=== PATIENT | female | born 1990 | race Caucasian/White ===

== ENCOUNTER 2017-06-19 19:54 | Inpatient (IN) ==
[2017-06-19 20:24] LABS: Bilirubin,Urine Negative (Negative); Blood,Urine Small (Negative); Clarity,Urine Clear (Clear); Color,Urine Yellow (Yellow); Glucose,Urine (UA) Normal (Normal); Ketones,Urine Negative (Negative); Leukocyte Esterase,Urine Moderate (Negative); Nitrite,Urine Negative (Negative); Protein,Urine Negative (Neg-Trace); Specific Gravity,Urine 1.012 (1.010-1.025); Urobilinogen,Urine Normal (Normal)
[2017-06-19 20:28] LABS: Bacteria,Urine None Seen per hpf (None-Few); Hyaline Casts,Urine None Seen per lpf (None-Few); Squamous Epithelial Cell,Urine Few per lpf (None-Few)
[2017-06-19 20:40] LABS: Basophils % 0.5 %; Eosinophils # 0.3 K/mcL (0.0-0.6); Eosinophils % 3.6 %; Hematocrit 41.6 % (35.3-44.9); Immature Granulocytes % 0.2 % (0-4); Lymphocytes # 1.8 K/mcL (0.6-4.6); Mean Corpuscular HGB Conc 31.3 g/dL (31.6-35.5); Mean Corpuscular Hemoglobin 24.8 pg (28.0-33.3); Mean Corpuscular Volume 79.4 fL (83.0-100.0); Mean Platelet Volume 10.1 fL (9.4-12.4); Monocytes # 0.6 K/mcL (0.0-1.3); Monocytes % 7.1 %; Neutrophils # 5.7 K/mcL (1.6-8.9); Platelet Count 298 K/mcL (140-400); Red Blood Count 5.24 M/mcL (3.82-4.97); Red Cell Distribution Width 13.9 % (11.5-14.5); Segmented Neutrophils % 67.6 %
[2017-06-19 20:58] LABS: Bilirubin,Direct 0.1 mg/dL (0.0-0.2); Bilirubin,Indirect 0.2 mg/dL (0.0-1.2); Bilirubin,Total 0.3 mg/dL (0.3-1.0); Calcium 9.6 mg/dL (8.6-10.3); Potassium 3.4 mEq/L (3.5-5.1)
[2017-06-19] MEDS ORDERED: *HR* Nalbuphine 10 MG/ML AMPUL IM ONE (22:12)
--- NOTE | 2017-06-19 22:40 | Emergency Department Note ---
Disposition Clinical Impression: Hydronephrosis, right, Right ureteral stone Disposition: Admitted As Inpatient Condition: Good Referrals: Eboni Bland, DIRECTOR SPEECH [Primary Care Provider] - Time of Disposition: 22:40 Abdominal Pain HPI - General Chief Complaint: ED Abdominal Pain Stated Complaint: Kidney stone Time Seen by Provider: 06/19/17 21:51 Source: patient Mode of arrival: ambulatory Limitations: no limitations Nursing Notes Reviewed: Yes Vital Signs Reviewed: Yes - History of Present Illness HPI Narrative: 27-year-old female presents emergency of her right-sided abdominal pain. She states it is in the right lower quadrant region and radiates to her back. Worse with movement. Better at rest. History of same in the past when she said kidney stones. She denies any dysuria and states that she has noted some blood in her urine. No vaginal complaints. Positive for nausea. No vomiting today. No documented fevers or riders. No other complaints at this time. She does follow with urology in the past for her previous kidney stones. Pain Scale: 10 - Related Data Home Medications Medication Instructions Recorded Confirmed Omeprazole [PriLOSEC] 40 mg PO DAILY 10/13/14 12/17/15 Cetirizine HCl [Zyrtec] 10 mg PO DAILY 12/07/15 12/17/15 Ferrous Sulfate 650 mg PO DAILY 12/07/15 12/17/15 Medroxyprogesterone Acetate 150 mg IM Q3M 12/07/15 12/17/15 [Depo-Provera] Potassium Citrate [Urocit-K] 10 meq PO TID 12/07/15 12/17/15 Sodium Bicarbonate 1,300 mg PO BID 12/07/15 12/17/15 Previous Rx's Medication Instructions Recorded OxyCODONE/APAP 5/325 [Percocet 1 each PO Q4H PRN #15 tablet 12/17/15 5/325 MG] Dicyclomine [Bentyl] 10 mg PO QID #10 capsule 10/10/16 Ondansetron HCl [Zofran] 4 mg PO DAILY PRN #20 tablet 10/10/16 Phenazopyridine [Pyridium] 100 mg PO TID PRN #9 tablet 12/24/16 cephALEXin [Keflex] 500 mg PO BID #20 capsule 12/24/16 Allergies Allergy/AdvReac Type Severity Reaction Status Date / Time diazepam [From Valium] Allergy Chest Pain Verified 12/24/16 13:23 Review of Systems: Gen.: No fevers or chills or new weakness Eyes: Denies double vision or any vision changes Ears: Denies any otalgia Pharynx: Denies sore throat CV: Denies chest pain. Denies palpitations Respiratory: Denies any cough or sputum production. No shortness of breath. GI: Positive abdominal pain. Neuro: Denies any headache. No problems with ambulation. No numbness. Skin: Denies any rashes or abrasions Psych: Denies any depression or suicidal or homicidal ideation Musculoskeletal: Denies any arthralgias or myalgias Abdominal Pain PMH - Past Medical History Medical history: Reports: asthma, GERD, kidney stones, migraine, other Female Surgical History: Reports: , ureteral stent HAMMER FITTER history: Reports: spontaneous Psychiatric history: Reports: anxiety, depression - Social History Smoking status: Never smoker Alcohol use: Reports: none Drug use: Reports: none Physical Exam - General Limitations: no limitations General appearance: alert, in no apparent distress - Head Head exam: atraumatic, normocephalic - Eye Eye exam: Present: normal appearance - ENT ENT exam: normal exam - Neck Neck exam: Present: normal inspection - Chest Chest inspection: Present: normal inspection - Respiratory Respiratory exam: Present: normal lung sounds bilaterally - Cardiovascular Cardiovascular exam: Present: regular rate, normal rhythm - Abdominal Exam Abdominal exam: Present: soft, tenderness (Right lower quadrant tenderness. Normal bowel sounds.) - Extremities Exam Extremities exam: Present: normal inspection - Expanded Lower Extremity Exam Hip/Pelvis exam: Present: normal inspection - Back Exam Back exam: Present: normal inspection - Neurological Exam Neurological exam: Present: alert, oriented X3 - Psychiatric Psychiatric exam: Present: normal affect, normal mood - Skin Skin exam: Present: warm, dry, intact Course Vital Signs Temperature 98.3 F 06/19/17 19:56 Pulse Rate 100 06/19/17 19:56 Respiratory Rate 20 06/19/17 19:56 Blood Pressure 147/81 06/19/17 19:56 O2 Sat by Pulse Oximetry 100 06/19/17 19:56 Temperature 98.3 F 06/19/17 19:56 Pulse Rate 100 06/19/17 19:56 Respiratory Rate 20 06/19/17 19:56 Blood Pressure 147/81 06/19/17 19:56 O2 Sat by Pulse Oximetry 100 06/19/17 19:56 Oxygen Delivery Oxygen Delivery Room Air Abdominal Pain - MDM Narrative Medical decision making narrative: CT shows evidence of 2 large stones. One is 9 mm in the right UVJ. She also has a distal right ureter stone of 3 mm. Her creatinines bumped to 1.33. No white count. Nitrite negative urine. Afebrile. Patient will need to be admitted to the hospitalist and consult to the urologist. I did speak with Dr. Cheney with urology. We will see in consultation. I will start her on IV antibiotics as well. She will be given Rocephin. - Medical Records Medical records reviewed: Yes I reviewed the patient's medical records. - Lab Data Lab results reviewed: Yes I reviewed the patient's lab results. Result diagrams: 06/19/17 20:28 06/19/17 20:28 Lab Results 06/19/17 06/19/17 06/19/17 Range/Units 20:11 20:11 20:28 WBC 8.4 (4.3-11.1) K/mcL RBC 5.24 H (3.82-4.97) M/mcL Hgb 13.0 (11.5-15.4) g/dL Hct 41.6 (35.3-44.9) % MCV 79.4 L (83.0-100.0) fL MCH 24.8 L (28.0-33.3) pg MCHC 31.3 L (31.6-35.5) g/dL RDW 13.9 (11.5-14.5) % Plt Count 298 (140-400) K/mcL MPV 10.1 (9.4-12.4) fL Immature Gran % 0.2 (0-4) % Seg Neutrophils % 67.6 % Lymphocytes % 21.0 % Monocytes % 7.1 % Eosinophils % 3.6 % Basophils % 0.5 % Neutrophils # 5.7 (1.6-8.9) K/mcL Lymphocytes # 1.8 (0.6-4.6) K/mcL Monocytes # 0.6 (0.0-1.3) K/mcL Eosinophils # 0.3 (0.0-0.6) K/mcL Basophils # 0.0 (0.0-0.2) K/mcL Sodium (136-145) mEq/L Potassium (3.5-5.1) mEq/L Chloride (98-107) mEq/L Carbon Dioxide (23-29) mEq/L BUN (6-20) mg/dL Creatinine (0.60-1.20) mg/dL Est GFR ( Amer) (> 60) Est GFR (Non-Af Amer) (> 60) BUN/Creatinine Ratio (6-26) Glucose (70-105) mg/dL Calculated Osmolality (280-300) Calcium (8.6-10.3) mg/dL Total Bilirubin (0.3-1.0) mg/dL Direct Bilirubin (0.0-0.2) mg/dL Indirect Bilirubin (0.0-1.2) mg/dL AST (13-39) Units/L ALT (7-52) Units/L Alkaline Phosphatase (34-104) Units/L Serum Total Protein (6.4-8.9) g/dL Albumin (3.5-5.7) g/dL Globulin (2.4-3.5) g/dL Albumin/Globulin Ratio (1.1-2.2) Amylase (29-103) Units/L Lipase (11-82) Units/L Urine Color Yellow (Yellow) Urine Clarity Clear (Clear) Urine pH 7.0 (5.0-8.0) pH Units Ur Specific [place] 1.012 (1.010-1.025) Urine Protein Negative (Neg-Trace) mg/dL Urine Glucose (UA) Normal (Normal) mg/dL Urine Ketones Negative (Negative) mg/dL Urine Blood Small H (Negative) Urine Nitrite Negative (Negative) Urine Bilirubin Negative (Negative) Urine Urobilinogen Normal (Normal) mg/dL Ur Leukocyte Esterase Moderate H (Negative) Urine Microscopic RBC 5-15 H (0-3) per hpf Urine Microscopic WBC 5-15 H (0-3) per hpf Ur Squamous Epith Cells Few (None-Few) per lpf Urine Bacteria None Seen (None-Few) per hpf Hyaline Casts None Seen (None-Few) per lpf Ur Culture Indicated? YES A (NO) Urine Test Negative (Negative) 06/19/17 Range/Units 20:28 WBC (4.3-11.1) K/mcL RBC (3.82-4.97) M/mcL Hgb (11.5-15.4) g/dL Hct (35.3-44.9) % MCV (83.0-100.0) fL MCH (28.0-33.3) pg MCHC (31.6-35.5) g/dL RDW (11.5-14.5) % Plt Count (140-400) K/mcL MPV (9.4-12.4) fL Immature Gran % (0-4) % Seg Neutrophils % % Lymphocytes % % Monocytes % % Eosinophils % % Basophils % % Neutrophils # (1.6-8.9) K/mcL Lymphocytes # (0.6-4.6) K/mcL Monocytes # (0.0-1.3) K/mcL Eosinophils # (0.0-0.6) K/mcL Basophils # (0.0-0.2) K/mcL Sodium 138 (136-145) mEq/L Potassium 3.4 L (3.5-5.1) mEq/L Chloride 112 H (98-107) mEq/L Carbon Dioxide 20 L (23-29) mEq/L BUN 16 (6-20) mg/dL Creatinine 1.33 H (0.60-1.20) mg/dL Est GFR ( Amer) 58 L (> 60) Est GFR (Non-Af Amer) 48 L (> 60) BUN/Creatinine Ratio 12 (6-26) Glucose 97 (70-105) mg/dL Calculated Osmolality 287 (280-300) Calcium 9.6 (8.6-10.3) mg/dL Total Bilirubin 0.3 (0.3-1.0) mg/dL Direct Bilirubin 0.1 (0.0-0.2) mg/dL Indirect Bilirubin 0.2 (0.0-1.2) mg/dL AST 11 L (13-39) Units/L ALT 10 (7-52) Units/L Alkaline Phosphatase 70 (34-104) Units/L Serum Total Protein 8.0 (6.4-8.9) g/dL Albumin 4.0 (3.5-5.7) g/dL Globulin 4.0 H (2.4-3.5) g/dL Albumin/Globulin Ratio 1.0 L (1.1-2.2) Amylase 29 (29-103) Units/L Lipase 33 (11-82) Units/L Urine Color (Yellow) Urine Clarity (Clear) Urine pH (5.0-8.0) pH Units Ur Specific [place] (1.010-1.025) Urine Protein (Neg-Trace) mg/dL Urine Glucose (UA) (Normal) mg/dL Urine Ketones (Negative) mg/dL Urine Blood (Negative) Urine Nitrite (Negative) Urine Bilirubin (Negative) Urine Urobilinogen (Normal) mg/dL Ur Leukocyte Esterase (Negative) Urine Microscopic RBC (0-3) per hpf Urine Microscopic WBC (0-3) per hpf Ur Squamous Epith Cells (None-Few) per lpf Urine Bacteria (None-Few) per hpf Hyaline Casts (None-Few) per lpf Ur Culture Indicated? (NO) Urine Test (Negative) - Radiology Data Radiology results reviewed: Yes I reviewed the patient's radiology results.
[2017-06-19] MEDS ORDERED: cefTRIAXone 1,000 MG in Water for inj. (sterile) 20 ML 10 ML IVP ONE (22:41)
[2017-06-19] MEDS ORDERED: Ketorolac 30 MG/ML VIAL IVP ONE (22:42)
[2017-06-19] MEDS ORDERED: *HR* Promethazine 25 MG/ML VIAL IVP PRN (23:50)
[2017-06-19] MEDS ORDERED: Naloxone 0.4 MG/ML INJ IVP PRN ×2 (23:50)
[2017-06-19] MEDS ORDERED: Acetaminophen 325 MG TABLET PO PRN (23:50)
[2017-06-19] MEDS ORDERED: OXYCODONE Oral CONC 10 MG/0.5 ML ORAL.SYG SL PRN ×2 (23:50)
[2017-06-20] MEDS: 0.9 % Sodium Chloride 1,000 ML IVC SCH ×3 (00:12→20:09)
--- NOTE | 2017-06-20 00:20 | Internal Med History&Physical ---
Date of Encounter: 06/19/17 Time of Encounter: 23:00 Internal Medicine - H&P: HPI Chief complaint: Right flank pain Admitted From: Home Plans for Post Hospital Care: Home History of present illness: Ms. Mcbride is a 27 year old female present to ER for right flank pain for 1 day. Past medical history is significant for renal tubular acidosis, recurrent kidney stone S/P multiple stenting, GERD. Patient said since last Monday she started to have right groin pain. Patient started to have right flank pain, radiates to right groin since today. Patient denies fever. Patient has nausea and vomited 3 times, vomiting are stomach content, no blood in it. Patient denies dysuria or burning on urination but complained of urination urgency and increased frequency. In the emergency room , urinalysis shows UTI, abdominal CAT scan shows right ureter stone with partial obstructive hydronephrosis. Urology was called by ER. Patient was given antibiotics and admitted for further management. Past Med Surg Social Fam HX - Past Medical History Medical history: asthma, GERD, kidney stones, migraine, other Psychiatric history: anxiety, depression - Past Surgical History Surgical History: , ureteral stent - Social History Smoking Status: Never smoker Smokeless Tobacco Status: No Alcohol use: none Drug use: none - Family History Mother History Unknown: Yes Internal Medicine - H&P: Meds Cyclobenzaprine [Flexeril] 10 mg PO HS 06/19/17 [History] Iron,Carbonyl [Iron Chews] 15 mg PO BID 06/19/17 [History] Omeprazole [PriLOSEC] 40 mg PO DAILY 06/19/17 [History] Potassium Citrate [Urocit-K] 5 meq PO TID 06/19/17 [History] Sodium Bicarbonate 100 mg PO QID 06/19/17 [History] 3 Allergy/AdvReac Type Severity Reaction Status Date / Time diazepam [From Valium] Allergy Chest Pain Verified 12/24/16 13:23 All Systems PM: A 10-system review of systems was performed and is negative for pertinent findings except as documented above in the HPI. - Constitutional Vitals: Temp Pulse Resp BP Pulse Ox 98.3 F 100 16 140/72 100 06/19/17 19:56 06/19/17 19:56 06/19/17 23:50 06/19/17 23:50 06/19/17 19:56 General appearance: Present: A&O X 3, no acute distress, answers questions appropriately - Head Head exam: Present: atraumatic, normocephalic - Eye Eye exam: Present: PERRL, conjuntiva pink, sclera anicteric Pupils: Present: PERRL - Neck Neck exam general surgery: Present: supple, trachea midline. Absent: lymphadenopathy - Respiratory Respiratory exam: Present: CTAB. Absent: accessory muscle use, rales, rhonchi, wheezes - Cardiovascular Cardiovascular exam: Present: RRR, +S1, +S2. Absent: diastolic murmur, gallop, rubs, systolic murmur - GI/Abdominal GI/Abdominal exam: Present: normal bowel sounds, soft, tenderness (RLQ tenderness without rebound or guarding. CVAT negative bilaterally), no peritoneal signs. Absent: distended - Extremities Exam Extremities exam: Present: warm, radial pulses palpable and symmetrical. Absent : calf tenderness, cyanotic, pedal edema - Neurological Exam Neurological exam: Present: CN II-XII intact, oriented X3, no focal deficits. Absent: pronater drift, facial droop, speech deficit - Skin Skin exam: Present: dry, intact Internal Med - H&P Results - Labs CBC & Chem 7: 06/19/17 20:28 06/19/17 20:28 - Assessment and plan (1) UTI (urinary tract infection) Current Visit: Yes Status: Acute Assessment and plan: Patient has UTI based on urinalysis and the symptoms. CT abdomen shows right- sided ureteral stone. Place patient on antibiotic and IV fluid. Urology was called. Keep patient nothing by mouth for possible urologic procedure. - Continue Rocephin IV - Follow up urine culture results Qualifiers: Urinary tract infection type: acute pyelonephritis Qualified Code(s): N10 - Acute pyelonephritis (2) DVT prophylaxis Current Visit: Yes Status: Acute Assessment and plan: Patient is young and ambulating well. Low risk for DVT. No anticoagulation placed at this point (3) Hydronephrosis, right Current Visit: Yes Status: Acute Assessment and plan: Due to ureteral stone. Urology consult for further management. (4) Right ureteral stone Current Visit: Yes Status: Acute Assessment and plan: Management as above. - Time Spent With Patient Total time spent is greater than 50% in coordination of care (as documented) at patient's floor/unit and/or counseling patient: 40 minutes Greater than 35 minutes
[2017-06-20] MEDS: Ondansetron 4 MG/2 ML VIAL IVP PRN ×2 (00:55→08:39)
[2017-06-20 04:23] LABS: Basophils % 0.4 %; Eosinophils # 0.3 K/mcL (0.0-0.6); Eosinophils % 3.3 %; Hematocrit 40.7 % (35.3-44.9); Hemoglobin 12.7 g/dL (11.5-15.4); Immature Granulocytes % 0.3 % (0-4); Lymphocytes # 2.5 K/mcL (0.6-4.6); Lymphocytes % 27.2 %; Mean Corpuscular HGB Conc 31.2 g/dL (31.6-35.5); Mean Corpuscular Hemoglobin 24.8 pg (28.0-33.3); Mean Corpuscular Volume 79.5 fL (83.0-100.0); Mean Platelet Volume 11.3 fL (9.4-12.4); Monocytes % 10.6 %; Neutrophils # 5.4 K/mcL (1.6-8.9); Nucleated Red Blood Cells 0.2 /100 WBC (0); Platelet Count 221 K/mcL (140-400); Red Blood Count 5.12 M/mcL (3.82-4.97); Red Cell Distribution Width 14.1 % (11.5-14.5); Segmented Neutrophils % 58.2 %
[2017-06-20 04:29] LABS: BUN/Creatinine Ratio 16 (6-26); Blood Urea Nitrogen 17 mg/dL (6-20); Calcium 9.3 mg/dL (8.6-10.3); Carbon Dioxide 15 mEq/L (23-29); Chloride 119 mEq/L (98-107); Glucose 96 mg/dL (70-105); Magnesium 2.3 mg/dL (1.6-2.6); Osmolality,Calculated 289 (280-300); Sodium 139 mEq/L (136-145); eGFR For African Americans > 60 (> 60); eGFR For Non-African Americans > 60 (> 60)
--- NOTE | 2017-06-20 07:41 | Urology - Consult Note ---
Date of Encounter: 06/20/17 Time of Encounter: 07:39 - Assessment and Plan (1) Right ureteral stone Current Visit: Yes Status: Acute Assessment and plan: 27-year-old woman with a distal right ureteral stone. I reviewed the CT scan. I discussed the findings with her. I reviewed her labs. Her urinalysis was not concerning for a UTI. A culture is pending. I think it would be reasonable to extract or stones today. I recommend proceeding with a right ureteroscopy, laser lithotripsy, and stent placement. She was informed of the risks of the procedure including but not limited to bleeding, infection, injury to other structures, need for further procedures, stent irritation, incomplete fragmentation, ureteral perforation, need for nephrostomy tube, need for open repair, risks unforeseen, and the risk of anesthesia. She is willing to proceed. Urology CN:DEBRA Consult date: 06/20/17 Reason for consult Urology: Other (Right flank pain) Requesting physician: Jamie Donaldson Jr History of present illness: 27-year-old woman presents with a 1-2 day history of right flank pain. The pain radiates to her groin. It was severe. She describes it as being sharp. She has noted nausea and threw up from the pain. She came to the emergency department. A CT scan showed a distal right ureteral stone with evidence of right-sided hydronephrosis. She was admitted for further care. She has a long-standing history of kidney stones. She follows with Dr. Mtz. He previously performed a ureteroscopic stone extraction. She has a history of nephrocalcinosis. Today, she is feeling better. She says her flank pain has improved. She denies passing the stone at this time. Past Med Surg Social Fam HX - Past Medical History Medical history: asthma, GERD, kidney stones, migraine, other Psychiatric history: anxiety, depression - Past Surgical History Surgical History: , ureteral stent - Social History Smoking Status: Never smoker Smokeless Tobacco Status: No Alcohol use: none Drug use: none - Family History Mother History Unknown: Yes Medications and Allergies Cyclobenzaprine [Flexeril] 10 mg PO HS 06/19/17 [History] Omeprazole [PriLOSEC] 40 mg PO DAILY 06/19/17 [History] Ferrous Sulfate [Ferrous Sulfate] 325 mg PO BID 06/20/17 [History] Oxybutynin [Ditropan] 5 mg PO BID 06/20/17 [History] Potassium Citrate [Urocit-K] 1,080 mg PO TID 06/20/17 [History] SUMAtriptan succinate [Imitrex] 50 mg PO Q2H PRN 06/20/17 [History] Sodium Bicarbonate 1,300 mg PO BID 06/20/17 [History] 3 Allergy/AdvReac Type Severity Reaction Status Date / Time diazepam [From Valium] AdvReac Chest Pain Verified 06/20/17 07:09 Review of Systems - Constitutional no chills, no fever(s) - EENT Nose, mouth and throat: no dizziness - Cardiovascular no chest pain - Respiratory no dyspnea - Gastrointestinal nausea, vomiting - Genitourinary Genitourinary: flank pain, no hematuria - Musculoskeletal no back pain - Integumentary no erythema, no rash - Neurological no weakness - Psychiatric no suicidal ideation - Hematologic/Lymphatic no easy bleeding - Allergic/Immunologic no wheezing Exam Initial Vital Signs Temp Pulse Resp BP Pulse Ox 98.3 F 100 20 147/81 100 06/19/17 19:56 06/19/17 19:56 06/19/17 19:56 06/19/17 19:56 06/19/17 19:56 - General physical appearance Present: well developed, well nourished, no distress - Eyes Absent: icteric - ENT Present: normal mucosa - Neck Present: trachea midline - Respiratory Present: normal respiratory effort - Cardiovascular Cardiovascular exam IM: RRR - Abdomen Abdomen: Present: soft - Integumentary Present: no rash - Neurologic Present: normal coordination - Musculoskeletal Present: other (Normal tone.) Urology Results - Labs 06/20/17 04:03 06/20/17 04:03 Abnormal lab results RBC 5.12 M/mcL (3.82-4.97) H 06/20/17 04:03 MCV 79.5 fL (83.0-100.0) L 06/20/17 04:03 MCH 24.8 pg (28.0-33.3) L 06/20/17 04:03 MCHC 31.2 g/dL (31.6-35.5) L 06/20/17 04:03 Nucleated RBCs/100 WBC 0.2 /100 WBC (0) H 06/20/17 04:03 Chloride 119 mEq/L (98-107) H 06/20/17 04:03 Carbon Dioxide 15 mEq/L (23-29) L 06/20/17 04:03 AST 11 Units/L (13-39) L 06/19/17 20:28 Globulin 4.0 g/dL (2.4-3.5) H 06/19/17 20:28 Albumin/Globulin Ratio 1.0 (1.1-2.2) L 06/19/17 20:28 Urine Blood Small (Negative) H 06/19/17 20:11 Ur Leukocyte Esterase Moderate (Negative) H 06/19/17 20:11 Urine Microscopic RBC 5-15 per hpf (0-3) H 06/19/17 20:11 Urine Microscopic WBC 5-15 per hpf (0-3) H 06/19/17 20:11 Ur Culture Indicated? YES (NO) A 06/19/17 20:11 Diabetes panel 06/20/17 Range/Units 04:03 Sodium 139 (136-145) mEq/L Potassium 4.0 (3.5-5.1) mEq/L Chloride 119 H (98-107) mEq/L Carbon Dioxide 15 L (23-29) mEq/L BUN 17 (6-20) mg/dL Creatinine 1.09 (0.60-1.20) mg/dL Glucose 96 (70-105) mg/dL Calcium 9.3 (8.6-10.3) mg/dL Calcium panel 06/20/17 Range/Units 04:03 Calcium 9.3 (8.6-10.3) mg/dL Pituitary panel 06/20/17 Range/Units 04:03 Sodium 139 (136-145) mEq/L Potassium 4.0 (3.5-5.1) mEq/L Chloride 119 H (98-107) mEq/L Carbon Dioxide 15 L (23-29) mEq/L BUN 17 (6-20) mg/dL Creatinine 1.09 (0.60-1.20) mg/dL Glucose 96 (70-105) mg/dL Calcium 9.3 (8.6-10.3) mg/dL Adrenal panel 06/20/17 Range/Units 04:03 Sodium 139 (136-145) mEq/L Potassium 4.0 (3.5-5.1) mEq/L Chloride 119 H (98-107) mEq/L Carbon Dioxide 15 L (23-29) mEq/L BUN 17 (6-20) mg/dL Creatinine 1.09 (0.60-1.20) mg/dL Glucose 96 (70-105) mg/dL Calcium 9.3 (8.6-10.3) mg/dL All other labs normal. - Imaging CT scan - abdomen: report reviewed, image reviewed CT scan - pelvis: report reviewed, image reviewed Consult Discharge Plan - Plan Referrals: Eboni Bland, WATER[employer] MATERIAL FOLDER [Primary Care Provider] -
--- NOTE | 2017-06-20 08:07 | Internal Med Progress Note ---
<Milena Willett - Last Filed: 06/20/17 08:03> Date of Encounter: 06/20/17 Time of Encounter: 08:00 - Assessment and plan (1) Right ureteral stone Current Visit: Yes Status: Acute Assessment and plan: Abdominal CT demonstrated moderate right hydronephrosis secondary to stone in UVJ. Urology is planning to take patient to OR today for ureteroscopy, laser lithotripsy, and stent placement. She reports history of kidney stones, November 2015 was last procedure to remove stones bilaterally from kidneys. She follows with Dr. Mtz and urology office and with Dr. Hussein of nephrology. She has a family history of kidney stones her aunt also has many kidney stones. Afebrile WBC 9.3 Cr 1.09 She reports that pain is well-controlled. -NPO -oxycodone as needed for pain -IVF (2) Hydronephrosis, right Current Visit: Yes Status: Acute Assessment and plan: see management above (3) UTI (urinary tract infection) Current Visit: Yes Status: Acute Assessment and plan: Urinalysis (leukocyte esterase +) and symptoms concerning for UTI. Likely secondary to UVJ stone. History of frequent UTIs. - Continue Rocephin day 2 - urine culture pending Qualifiers: Urinary tract infection type: acute pyelonephritis Qualified Code(s): N10 - Acute pyelonephritis (4) DVT prophylaxis Current Visit: Yes Status: Acute Assessment and plan: Patient is young and ambulating well. Low risk for DVT. No anticoagulation placed at this point. - Time Spent With Patient Total time spent is greater than 50% in coordination of care (as documented) at patient's floor/unit and/or counseling patient: - Subjective Interval history: 27-year-old female past medical history of recurrent kidney stones, GERD, asthma presented to [facility] complaining of right flank pain with associated nausea and vomiting. She has increased urinary frequency with decrease in stream. Imaging demonstrated right hydronephrosis with stone in UVJ. She reports improvement in pain since taking pain medications. She denies nausea, vomiting. - Constitutional Vitals: Temp Pulse Resp BP Pulse Ox 98.0 F 88 14 96/53 98 06/20/17 05:48 06/20/17 05:48 06/20/17 05:48 06/20/17 05:48 06/20/17 05:48 General appearance: Present: A&O X 3, no acute distress, answers questions appropriately Exam: Gen.: Vitals noted. No acute distress. AAOx3 HEENT: oropharynx clear, Normocephalic, atraumatic Neck: Supple. No adenopathy. Cardiac: RRR, no murmur, +S1/S2 Pulmonary: CTA bilaterally, no wheezes, rales or rhonchi, equal chest expansion Abdomen: soft, minimal right lower quadrant tender, Bowel sounds noted, no guarding, no bilateral flank pain Extremities: no BLE edema, nontender calf, no cyanosis or clubbing Neuro: A&Ox3, moves all extremities, no focal deficits Psych: Appropriate mood and behavior Internal Medicine: Result - Labs CBC & Chem 7: 06/20/17 04:03 06/20/17 04:03 Labs: Short CBC 06/20/17 Range/Units 04:03 WBC 9.3 (4.3-11.1) K/mcL Hgb 12.7 (11.5-15.4) g/dL Hct 40.7 (35.3-44.9) % Plt Count 221 (140-400) K/mcL Neutrophils # 5.4 (1.6-8.9) K/mcL BMP 06/20/17 04:03 Sodium 139 Potassium 4.0 Chloride 119 H Carbon Dioxide 15 L BUN 17 Creatinine 1.09 Glucose 96 Calcium 9.3 Consult Discharge Plan - Plan Referrals: Eboni Bland, SUPPLY CRIB ATTENDANT [Primary Care Provider] - <Augie Sanchez - Last Filed: 06/20/17 17:08> Date of Encounter: 06/20/17 - Assessment and plan (1) Hydronephrosis, right Current Visit: Yes Status: Acute (2) Right ureteral stone Current Visit: Yes Status: Acute (3) UTI (urinary tract infection) Current Visit: Yes Status: Acute Qualifiers: Urinary tract infection type: acute pyelonephritis Qualified Code(s): N10 - Acute pyelonephritis (4) DVT prophylaxis Current Visit: Yes Status: Acute - Time Spent With Patient Total time spent is greater than 50% in coordination of care (as documented) at patient's floor/unit and/or counseling patient: - Constitutional Vitals: Temp Pulse Resp BP Pulse Ox 98.3 F 87 14 116/77 99 06/20/17 15:25 06/20/17 15:25 06/20/17 15:25 06/20/17 15:25 06/20/17 15:25 Internal Medicine: Result - Labs CBC & Chem 7: 06/20/17 04:03 06/20/17 04:03 Labs: Short CBC 06/20/17 Range/Units 04:03 WBC 9.3 (4.3-11.1) K/mcL Hgb 12.7 (11.5-15.4) g/dL Hct 40.7 (35.3-44.9) % Plt Count 221 (140-400) K/mcL Neutrophils # 5.4 (1.6-8.9) K/mcL BMP 06/20/17 04:03 Sodium 139 Potassium 4.0 Chloride 119 H Carbon Dioxide 15 L BUN 17 Creatinine 1.09 Glucose 96 Calcium 9.3 - Attending Attestation I performed a history and physical examination of the patient and discussed his/ her management with the resident. I reviewed the residents note and agree with the documented findings and plan of care.
[2017-06-20] MEDS ORDERED: D5% in Water 1,000 ML IVC PRN (12:29)
[2017-06-20] MEDS ORDERED: *HR* Dextrose 50 % in Water (Syg) 50 ML SYRINGE IVP PRN (12:29)
[2017-06-20] MEDS ORDERED: Dextrose Gel 15 GM/37.5 ML TUBE PO PRN ×2 (12:29)
[2017-06-20] MEDS ORDERED: cefTRIAXone 1,000 MG in Water for inj. (sterile) 20 ML 10 ML IVPB SCH (23:00)
[2017-06-21 05:31] LABS: Hematocrit 37.1 % (35.3-44.9); Hemoglobin 11.6 g/dL (11.5-15.4); Mean Corpuscular HGB Conc 31.3 g/dL (31.6-35.5); Mean Corpuscular Hemoglobin 24.9 pg (28.0-33.3); Mean Corpuscular Volume 79.6 fL (83.0-100.0); Mean Platelet Volume 10.5 fL (9.4-12.4); Platelet Count 266 K/mcL (140-400); Red Blood Count 4.66 M/mcL (3.82-4.97); Red Cell Distribution Width 14.5 % (11.5-14.5)
[2017-06-21 05:50] LABS: BUN/Creatinine Ratio 16 (6-26); Blood Urea Nitrogen 15 mg/dL (6-20); Calcium 8.8 mg/dL (8.6-10.3); Carbon Dioxide 16 mEq/L (23-29); Chloride 119 mEq/L (98-107); Glucose 100 mg/dL (70-105); Osmolality,Calculated 293 (280-300); Potassium 3.2 mEq/L (3.5-5.1); Sodium 141 mEq/L (136-145); eGFR For African Americans > 60 (> 60); eGFR For Non-African Americans > 60 (> 60)
[2017-06-21] MEDS: 0.9 % Sodium Chloride 1,000 ML IVC SCH (06:27)
[2017-06-21] MEDS ORDERED: Potassium Chloride 40 MEQ, Lidocaine 1% 2 ML in D5% in Water 500 ML IVPB ONE (07:04)
--- NOTE | 2017-06-21 07:06 | Urology Progress Note ---
Date of Encounter: 06/21/17 Time of Encounter: 07:05 - Assessment and Plan (1) Right ureteral stone Current Visit: Yes Status: Acute Assessment and plan: 27-year-old woman with a distal right ureteral stone. Plan for right ureteroscopy, laser lithotripsy, and stent placement today. She is aware of all risks. I will repeat her potassium chloride today with IV KCl. Progress Note Narrative: 27-year-old woman with a distal right ureteral stone is seen in follow-up. Operative room schedule was significantly delayed yesterday and her case was postponed to today. She is doing well overnight. Plan for right ureteroscopic stone extraction today. Objective Initial Vital Signs Temp Pulse Resp BP Pulse Ox 98.3 F 100 20 147/81 100 06/19/17 19:56 06/19/17 19:56 06/19/17 19:56 06/19/17 19:56 06/19/17 19:56 - General physical appearance Present: well developed, well nourished, no distress - Respiratory Present: normal respiratory effort - Abdomen Present: soft - Labs 06/21/17 04:55 06/21/17 04:55 Diabetes panel 06/21/17 Range/Units 04:55 Sodium 141 (136-145) mEq/L Potassium 3.2 L (3.5-5.1) mEq/L Chloride 119 H (98-107) mEq/L Carbon Dioxide 16 L (23-29) mEq/L BUN 15 (6-20) mg/dL Creatinine 0.93 (0.60-1.20) mg/dL Glucose 100 (70-105) mg/dL Calcium 8.8 (8.6-10.3) mg/dL Calcium panel 06/21/17 Range/Units 04:55 Calcium 8.8 (8.6-10.3) mg/dL Pituitary panel 06/21/17 Range/Units 04:55 Sodium 141 (136-145) mEq/L Potassium 3.2 L (3.5-5.1) mEq/L Chloride 119 H (98-107) mEq/L Carbon Dioxide 16 L (23-29) mEq/L BUN 15 (6-20) mg/dL Creatinine 0.93 (0.60-1.20) mg/dL Glucose 100 (70-105) mg/dL Calcium 8.8 (8.6-10.3) mg/dL Adrenal panel 04/25/18 Range/Units 04:55 Sodium 141 (136-145) mEq/L Potassium 3.2 L (3.5-5.1) mEq/L Chloride 119 H (98-107) mEq/L Carbon Dioxide 16 L (23-29) mEq/L BUN 15 (6-20) mg/dL Creatinine 0.93 (0.60-1.20) mg/dL Glucose 100 (70-105) mg/dL Calcium 8.8 (8.6-10.3) mg/dL Consult Discharge Plan - Plan Referrals: Eboni Bland, [employer] [Primary Care Provider] -
--- NOTE | 2017-06-21 08:59 | Discharge Summary ---
<Milena Willett - Last Filed: 06/21/17 11:51> Date of Encounter: 06/21/17 Time of Encounter: 08:57 - Discharge Diagnosis (1) Right ureteral stone Priority: Primary Status: Acute (2) Hydronephrosis, right Priority: Secondary Status: Acute (3) UTI (urinary tract infection) Priority: Secondary Status: Acute Qualifiers: Urinary tract infection type: acute pyelonephritis Qualified Code(s): N10 - Acute pyelonephritis (4) DVT prophylaxis Priority: Secondary Status: Acute Hospital course: Ms. Mcbride is a 27-year-old female past medical history of recurrent kidney stones, GERD, asthma presented to [facility] complaining of right flank pain with associated nausea and vomiting. She reported that it started on Monday and progressively worsened so she came to the ED. The pain radiated from her right flank down to her right groin. She had increased urinary frequency with decrease in stream. Imaging demonstrated right hydronephrosis with stone in UVJ. Urinalysis was concerned for UTI and with her symptoms she was started on Rocephin. Nephrology was consulted and to take patient to OR today for ureteroscopy, laser lithotripsy, and stent placement. She remained afebrile, white blood cell count within normal limits. She was given pain medication and Zofran for nausea. Her pain remain controlled with medication. The day of the procedure she passed the stone in her urine that morning so the procedure was canceled. She denied nausea, vomiting, back pain, dysuria, abdominal pain, fever, chills, hematuria. She was instructed to call her ecological modeler Dr. Hussein to update her on her hospitalization into follow-up with her PCP in 1 to 2 weeks. She was discharged with PO Abx. Her significant other was at bedside. She is alert and oriented times 3 with full capacity reinstate clear understanding of the treatment plant. Discharge discussed with: patient, family - Time Spent with Patient Total time spent providing and/or coordinating discharge services: Greater than 30 minutes - Discharge Medications Prescriptions: Sulfamethoxazole/Trimeth DS [Bactrim DS] 1 each PO BID #20 tablet Home Medications: Cyclobenzaprine [Flexeril] 10 mg PO HS 06/19/17 [History] Omeprazole [PriLOSEC] 40 mg PO DAILY 06/19/17 [History] Ferrous Sulfate 325 mg PO BID 06/20/17 [History] Oxybutynin [Ditropan] 5 mg PO BID 06/20/17 [History] Potassium Citrate [Urocit-K] 1,080 mg PO TID 06/20/17 [History] SUMAtriptan succinate [Imitrex] 50 mg PO Q2H PRN 06/20/17 [History] Sodium Bicarbonate 1,300 mg PO BID 06/20/17 [History] Sulfamethoxazole/Trimeth DS [Bactrim DS] 1 each PO BID #20 tablet 06/21/17 [Rx] Allergies/Adverse Reactions: 3 Allergy/AdvReac Type Severity Reaction Status Date / Time diazepam [From Valium] AdvReac Chest Pain Verified 06/20/17 07:09 Date of admission: 06/19/17 23:50 Primary care physician: Eboni Bland CNP Consults: 06/19/17 23:53 Consult to Urology [CONS] Stat Consulting Provider: [facility] Reason for Consult: Ureter stone, Dr Magallon called by ER Call Completed: Yes Discharging clinician: Augie Sanchez Anticipated date of discharge: 06/21/17 - Constitutional Vitals: Temp Pulse Resp BP Pulse Ox 98.6 F 100 15 111/72 95 06/21/17 06:46 06/21/17 06:46 06/21/17 06:46 06/21/17 06:46 06/21/17 06:46 General appearance: Present: A&O X 3, no acute distress, answers questions appropriately Exam: Gen.: Vitals noted. No acute distress. AAOx3 HEENT: oropharynx clear, Normocephalic, atraumatic Neck: Supple. No adenopathy. Cardiac: RRR, no murmur, +S1/S2 Pulmonary: CTA bilaterally, no wheezes, rales or rhonchi, equal chest expansion Abdomen: soft, nontender, Bowel sounds noted, no guarding Back: Nontender throughout. No CVA tenderness Extremities: no BLE edema, nontender calf, no cyanosis or clubbing Neuro: A&Ox3, moves all extremities, no focal deficits Psych: Appropriate mood and behavior - Patient Status Disposition: Home, Self-Care Condition: Good Functional capacity at discharge: independent ambulation Overall status at discharge: patient is back to baseline - Discharge Instructions Instructions: Sulfamethoxazole/Trimethoprim (By mouth), Kidney Stones (DC) Follow Up With: Renae Cruz CNP [Advanced Practice Nurse] - 06/28/17 11:00 am Additional Instructions: finish antibiotics to completion follow up with PCP in 1-2 weeks - Diet and Activity Activity: resume usual activities as tolerated Diet: advance to your usual diet <Augie Sanchez - Last Filed: 06/21/17 20:45> Date of Encounter: 06/21/17 - Discharge Diagnosis (1) Hydronephrosis, right Status: Acute (2) Right ureteral stone Status: Acute (3) UTI (urinary tract infection) Status: Acute Qualifiers: Urinary tract infection type: acute pyelonephritis Qualified Code(s): N10 - Acute pyelonephritis (4) DVT prophylaxis Status: Acute Hospital course: Ms. Mcbride is a 27 year old female - Time Spent with Patient Total time spent providing and/or coordinating discharge services: Date of admission: 06/19/17 23:50 Primary care physician: Eboni Bland CNP Consults: 06/19/17 23:53 Consult to Urology [CONS] Stat Consulting Provider: [facility] Reason for Consult: Ureter stone, Dr Magallon called by ER Call Completed: Yes - Constitutional Vitals: Temp Pulse Resp BP Pulse Ox 98.0 F 86 14 119/76 99 06/21/17 10:09 06/21/17 10:09 06/21/17 10:09 06/21/17 10:09 06/21/17 10:09 - Attending Attestation I performed a history and physical examination of the patient and discussed his/ her management with the resident. I reviewed the residents note and agree with the documented findings and plan of care.
[2017-06-21 10:13] VITALS: BP 119/76
== END 2017-06-21 14:38 | disposition home or self-care (01) | DRG 463 ==
LOC: 3ANU 19:54 → EMEROO 19:54 → 3ANU 23:58
PROVIDERS: ADMIT Internal Medicine; ATTEND Internal Medicine

== ENCOUNTER 2021-09-24 17:34 | Observation (INO) ==
[2021-09-24 18:10] LABS: Basophils % 0.3 %; Eosinophils # 0.2 K/mcL (0.0-0.6); Eosinophils % 1.9 %; Hematocrit 43.5 % (35.3-44.9); Hemoglobin 13.3 g/dL (11.5-15.4); Immature Granulocytes % 0.4 % (0-4); Lymphocytes # 1.7 K/mcL (0.6-4.6); Mean Corpuscular HGB Conc 30.6 g/dL (31.6-35.5); Mean Corpuscular Hemoglobin 24.8 pg (28.0-33.3); Mean Platelet Volume 10.5 fL (9.4-12.4); Monocytes # 0.6 K/mcL (0.0-1.3); Monocytes % 5.6 %; Neutrophils # 7.4 K/mcL (1.6-8.9); Platelet Count 297 K/mcL (140-400); Red Blood Count 5.37 M/mcL (3.82-4.97); Red Cell Distribution Width 14.5 % (11.5-14.5); Segmented Neutrophils % 74.8 %; White Blood Count 9.9 K/mcL (4.3-11.1)
[2021-09-24 18:34] LABS: BUN/Creatinine Ratio 10 (6-26); Blood Urea Nitrogen 14 mg/dL (6-20); Calcium 9.5 mg/dL (8.6-10.3); Carbon Dioxide 21 mEq/L (23-29); Chloride 107 mEq/L (98-107); Glucose 85 mg/dL (70-105); Osmolality,Calculated 280 (280-300); Potassium 3.7 mEq/L (3.5-5.1); Sodium 135 mEq/L (136-145); Troponin I < 0.03 ng/mL (< 0.04); eGFR For African Americans 53 (> 60); eGFR For Non-African Americans 44 (> 60)
[2021-09-24 19:08] LABS: Bacteria,Urine Few per hpf (None-Few); Bilirubin,Urine Negative (Negative); Blood,Urine Negative (Negative); Clarity,Urine Clear (Clear); Color,Urine Light-Yellow (Yellow); Glucose,Urine (UA) Normal (Normal); Hyaline Casts,Urine Few per lpf (None Seen); Ketones,Urine Negative (Negative); Leukocyte Esterase,Urine Large (Negative); Nitrite,Urine Negative (Negative); PH,Urine 6.5 pH Units (5.0-8.0); Protein,Urine Trace mg/dL (Neg-Trace); Specific Gravity,Urine 1.012 (1.010-1.025); Squamous Epithelial Cell,Urine Few per hpf (None-Few); Urobilinogen,Urine Normal (Normal); WBC,Urine 50-100 per hpf (0-3)
[2021-09-24 19:11] LABS: Alanine Aminotransferase 13 Units/L (7-52); Alkaline Phosphatase 60 Units/L (34-104); Amylase 26 Units/L (29-103); Aspartate Amino Transferase 19 Units/L (13-39); Bilirubin,Indirect 0.4 mg/dL (0.0-1.0); Bilirubin,Total 0.4 mg/dL (0.3-1.0); Globulin 4.1 g/dL (2.4-3.5); Lipase 37 Units/L (11-82); Total Protein 8.1 g/dL (6.4-8.9)
[2021-09-24] MEDS ORDERED: cefTRIAXone 1,000 MG in Water for inj. (sterile) 10 ML IVP ONE (21:34)
[2021-09-24] MEDS ORDERED: 0.9 % Sodium Chloride 1,000 ML IV ONE (23:10)
[2021-09-25] MEDS ORDERED: Naloxone 0.4 MG/ML INJ IVP PRN (03:09)
[2021-09-25] MEDS ORDERED: Ondansetron 4 MG/2 ML VIAL IVP PRN (03:09)
[2021-09-25] MEDS ORDERED: Acetaminophen 325 MG TABLET PO PRN (03:09)
[2021-09-25] MEDS ORDERED: 0.9 % Sodium Chloride 1,000 ML IVC SCH (03:15)
[2021-09-25 06:02] LABS: Basophils % 0.3 %; Eosinophils # 0.1 K/mcL (0.0-0.6); Eosinophils % 1.1 %; Hematocrit 42.2 % (35.3-44.9); Immature Granulocytes % 0.3 % (0-4); Lymphocytes # 1.2 K/mcL (0.6-4.6); Lymphocytes % 15.4 %; Mean Corpuscular HGB Conc 30.8 g/dL (31.6-35.5); Mean Corpuscular Hemoglobin 24.9 pg (28.0-33.3); Mean Corpuscular Volume 80.8 fL (83.0-100.0); Mean Platelet Volume 11.1 fL (9.4-12.4); Monocytes # 0.5 K/mcL (0.0-1.3); Monocytes % 6.3 %; Neutrophils # 6.1 K/mcL (1.6-8.9); Platelet Count 192 K/mcL (140-400); Red Blood Count 5.22 M/mcL (3.82-4.97); Red Cell Distribution Width 14.6 % (11.5-14.5); Segmented Neutrophils % 76.6 %; White Blood Count 7.9 K/mcL (4.3-11.1)
[2021-09-25 06:17] LABS: INR 1.2; Prothrombin Time 13.1 Seconds (9.4-12.1)
[2021-09-25 06:19] LABS: BUN/Creatinine Ratio 10 (6-26); Blood Urea Nitrogen 11 mg/dL (6-20); Carbon Dioxide 19 mEq/L (23-29); Chloride 111 mEq/L (98-107); Potassium 3.8 mEq/L (3.5-5.1); Sodium 136 mEq/L (136-145); eGFR For African Americans > 60 (> 60)
[2021-09-25 06:20] LABS: Calcium 9.2 mg/dL (8.6-10.3); Glucose 86 mg/dL (70-105); Magnesium 1.8 mg/dL (1.6-2.6); Osmolality,Calculated 281 (280-300); eGFR For Non-African Americans 58 (> 60)
[2021-09-25] MEDS ORDERED: cefTRIAXone 1,000 MG in 0.9 % Sodium Chloride Mini Bag 100 ML IVPB SCH (09:00)
[2021-09-25 10:50] VITALS: BP 113/72; PULSE 95; TEMP 98.5; O2SAT 98
== END 2021-09-25 15:53 | disposition home or self-care (01) ==
LOC: 3ANU 17:34 → EMEROOARM 17:34 → SUATTDRO 09-25 01:27 → 3ANU 09-25 02:21
PROVIDERS: ADMIT Student in an Organized Health Care Education/Training Program; ATTEND Internal Medicine